=== PATIENT | female | born 1995 ===

== ENCOUNTER → 2019-01-20 | Outpatient (REF) | payer OTHER ==
[2019-01-20 19:21] LABS: HEMATOCRIT 36.9 % (36.0-47.0); HEMOGLOBIN 13.1 g/dl (12.0-15.5); MEAN CORPUSCULAR HEMOGLOBIN 31.7 pg (27.0-33.0); MEAN CORPUSCULAR HGB CONC 35.5 g/dl (32.0-36.5); MEAN CORPUSCULAR VOLUME 89.3 fl (80.0-96.0); PLATELET COUNT, AUTOMATED 231 10^3/uL (150-450); RED BLOOD COUNT 4.13 10^6/uL (4.00-5.40); WHITE BLOOD COUNT 6.9 10^3/uL (4.0-10.0)
[2019-01-20 20:41] LABS: HCG, SERUM QUANTITATIVE 28875 MIU/ML
[2019-01-21 10:29] LABS: RUBELLA IgG QUALITATIVE IMMUNE (IMMUNE)
[2019-01-21 10:59] LABS: HIV 1&2 SCREEN CENTAUR NEGATIVE (NEGATIVE)
== END ==
LOC: M LAB REF 17:30
PROVIDERS: ATTEND Nurse Practitioner Women's Health
DX: Z32.01 Encounter for pregnancy test, result positive (principal); O36.80X0 Pregnancy with inconclusive fetal viability, not applicable or unspecified; Z3A.00 Weeks of gestation of pregnancy not specified